=== PATIENT | male | born 2005 | race Caucasian/White ===

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

== ENCOUNTER 2023-03-05 21:52 | Emergency (ER) | payer MEDICAID, SELFPAY ==
[2023-03-05 21:55] VITALS: BP 103/60; PULSE 64; RESP 16; TEMP 36.6; O2SAT 97; BMI 20.9
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
[2023-03-05 22:04] VITALS: O2SAT 97
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
--- NOTE | 2023-03-05 23:26 | ED.RN ---
Patient refused ibuprofen.
== END 2023-03-05 23:24 | disposition home or self-care (01) ==
PROVIDERS: Emergency Provider Emergency Medicine; PCP Pediatrics; Visit Provider Emergency Medicine
DX: S09.90XA Unspecified injury of head, initial encounter (principal); S16.1XXA Strain of muscle, fascia and tendon at neck level, initial encounter; V47.5XXA Car driver injured in collision with fixed or stationary object in traffic accident, initial encounter; J45.909 Unspecified asthma, uncomplicated
CPT/HCPCS: 70450; 71045; 72125; 72170; 99285